=== PATIENT | female | born 1985 | race Caucasian/White ===

== ENCOUNTER 2020-05-11 12:32 | Emergency (ER) | payer MEDICAID, SELFPAY ==
[2020-05-11 13:23] VITALS: BP 118/76; PULSE 115; RESP 16; TEMP 37; O2SAT 97; BMI 23.8
[2020-05-11] MEDS: 0.9 % Sodium Chloride 1,000 ML 999 ML IVCONT (14:44)
[2020-05-11] MEDS: Ketorolac Tromethamine 15 MG/ML VIAL IVPUSH (14:46)
[2020-05-11] MEDS: Metoclopramide HCl 10 MG/2 ML VIAL IVPUSH (14:46)
[2020-05-11 14:50] VITALS: BP 128/67; PULSE 115; RESP 16; TEMP 36.7
[2020-05-11 14:56] LABS: MANUAL DIFF FLAG NO
[2020-05-11 15:02] LABS: Glucose Urine UA NEG (NEG); Leukocyte Esterase Urine NEG (NEG); Nitrite Urine NEG (NEG); PH 5.5 (5.0-8.0); Specific Gravity - Urine >= 1.030 (1.005-1.025); Urine Blood NEG (NEG); Urine Ketones 40 MG/DL (NEG); Urine Protein NEG (NEG-TRACE)
[2020-05-11 15:03] LABS: Basophils Percent Auto 0.4 % (0-2); Eosinophils Percent Auto 0.4 % (0-4); Hematocrit 40.5 % (37-47); Hemoglobin 13.3 g/dl (12.0-16.0); Imm Gran Abs Auto 0.03 X10*3/uL (0.00-0.03); Imm Gran Pct Auto 0.4 % (0.0-0.4); Lymphocytes Absolute Auto 1.5 X10*3/uL (1.2-4.9); Lymphocytes Percent Auto 18.9 % (20-40); Mean Corpuscular HGB Conc 32.8 g/dl (31.0-35.0); Mean Corpuscular Hemoglobin 29.2 pg (27.0-33.0); Mean Corpuscular Volume 88.8 fL (80-98); Mean Platelet Volume 10.2 fL (9.4-12.3); Monocytes Absolute Auto 0.2 X10*3/uL (0.1-1.2); Neutrophils Absolute Auto 6.1 X10*3/uL (2.0-8.3); Neutrophils Percent Auto 76.9 % (45-73); Platelet Count 218 X10*3/uL (160-400); Red Blood Count 4.56 X10*6/uL (4.20-5.50); Red Cell Distribution Width 13.9 % (11.0-16.0); White Blood Count 7.9 X10*3/uL (4.8-10.8)
[2020-05-11 15:07] LABS: Appearance Urine CLEAR; Color Urine YELLOW; UACC Culture Trigger NO
[2020-05-11 15:28] LABS: UPreg QC Valid YES; Urine Pregnancy NEGATIVE (NEGATIVE)
[2020-05-11 15:30] LABS: Alanine Aminotransferase 27 U/L (0-31); Albumin Level 4.6 g/dL (3.5-5.0); Alkaline Phosphatase 65 U/L (39-117); Anion Gap 19 (12-20); Aspartate Amino Transferase 70 U/L (5-31); Bilirubin Direct 0.3 mg/dL (0.0-0.5); Bilirubin Total 0.6 mg/dL (0.0-1.0); Blood Urea Nitrogen 19 mg/dL (9-16); Calcium 9.6 mg/dL (8.4-10.2); Carbon Dioxide 24 mmol/L (22-29); Chloride 100 mmol/L (96-108); Creatinine Clr Calc Pharmacy 78.4; Estimated Glomerular Filt Rate > 60; Glucose Random 64 mg/dL (60-115); Magnesium 2.1 mg/dL (1.6-2.6); Potassium 4.7 mmol/l (3.3-5.1); Sodium 138 mmol/L (135-145); Total Protein 7.5 g/dL (6.5-8.0)
[2020-05-11 16:11] VITALS: BP 124/71; PULSE 100; RESP 16; TEMP 36.6
--- NOTE | 2020-05-11 16:11 | PC.NURSE ---
PT STATES HER HEADACHE IS BETTER, 3/10 PAIN PT WANTS TO KNOW WHY SHE HAS SHAKING EPISODE IN THE AM
--- NOTE | 2020-05-11 16:35 | ED_ITS ---
HPI - Headache General Chief Complaint: Headache Stated Complaint: Headache Time Seen by Provider: 05/11/20 13:59 Source: patient Mode of arrival: ambulatory History of Present Illness HPI Narrative: 34-year-old female with no significant past medical history presented to ED complaining of headache, chills, generalized fatigue /myalgias x 4 days. Headache not maximal in onset, relieved with Excedrin at home. denies lightheadedness/, CP/ SOB, cough, numbness /tingling, abdominal pain, N/V, recent travel Related Data Allergies Allergy/AdvReac Type Severity Reaction Status Date / Time Darvocet A500 Allergy Unknown hives Uncoded 05/11/20 15:10 From DARVOCET-N 100 Allergy Unknown ITCHY Uncoded 05/11/20 15:10 Review of Systems Review of Systems: Constitutional: No Weight loss, No Fever, + Chills, No Night Sweats, + Fatigue, + Malaise Eyes: No Vision Changes Cardiovascular: No Chest Pain, No SOB, No Palpitations Respiratory: No Cough, No Sputum, No Dyspnea Gastrointestinal: No Nausea, No Vomiting, No Diarrhea, No Constipation, No Abdominal pain Genitourinary: No Dysuria, No Hematuria Musculoskeletal: No joint pain, No Myalgias, No Joint Swelling Skin: No Skin Lesions, No rash Neuro: +generalized weakness, No Numbness, No Paresthesias, No Loss of Consciousness, No Dizziness,+ Headache Yes all other systems are reviewed and are negative [facility] Past Medical History Attestation statement: The following information was validated with the patient. Medical History (Updated 05/11/20 @ 13:34 by Reddy Contreras) No known health problems Social History Social History Smoking Status: Current every day smoker Use of substances other than those prescribed or required for medical reasons: Yes Advance Directives: No Advance Directives Information Provided: No Physical Exam Vital Signs: Vital Signs: Vital Signs Temp Pulse Resp BP Pulse Ox 05/11/20 16:11 98 F 100 16 124/71 05/11/20 14:50 98.1 F 115 H 16 128/67 05/11/20 13:23 98.6 F 115 H 16 118/76 97 Body Mass Index 23.8 Const: General: cooperative and healthy appearing Orientation/consciousness: patient oriented x3 Limitations: no limitations HENMT: Head: Yes normal to inspection Ears: hearing grossly normal bilaterally General nose exam: Normal external nose present Face and sinus: Yes normal facial exam Eyes: General: appearance normal, both eyes and all related structures Conjunctivae: conjunctivae normal Sclerae: sclerae normal Corneas: corneas normal Pupils: Equal, round and reactive pupils present EOM: EOMs intact bilaterally Neck: Neck: Yes normal visual inspection and Yes no meningeal signs Resp: Effort & Inspection: normal respiratory effort Auscultation: clear to auscultation bilaterally Cardio: Rate: regular rate Heart sounds: S1 normal heart sound present and S2 normal heart sound present GI: Inspection: Yes normal to inspection Palpation (GI): Soft to palpation, nontender, no guarding and not rigid Skin: Rashes: no rashes Wounds: no wounds Neuro: General: patient oriented x3, gait normal, tone normal, moves all extremities, no meningeal signs, no focal motor deficits and CN's II-XI intact bilaterally Cranial nerves: Yes Equal, round and reactive pupils present Gait exam (Neuro): Normal gait present Extrem: General: Yes normal to inspection Course Course Course Narrative: - AST elevated, labs otherwise unremarkable, UA negative but with ketones likely from dehydration, negative -[id number]-- on re-evaluation patient reports symptomatic improvement lab and imaging results discussed with patient including worrisome signs and symptoms and strict return precautions. Patient verbalized understanding feel safe for discharge follow-up with PCP MDM - Headache MDM Narrative Medical decision making narrative: 34-year-old female with no significant past medical history presented to ED complaining of headache, chills, generalized fatigue /myalgias x4 days. On exam initially tachycardic, NAD, tearful, no focal neuro deficits. Likely viral syndrome/possible COVID-19 vs anxiety. Rule out metabolic / infectious etiology. Low concern for ACS, ICH, CVT, or meningitis plan: Labs, UA, symptomatic therapies, COVID-19, reassess anticipate DC home Lab Data Result diagrams: 05/11/20 14:41 05/11/20 14:42 Labs: Lab Results 05/11/20 05/11/20 05/11/20 Range/Units 14:41 14:42 14:42 WBC 7.9 (4.8-10.8) X10*3/uL RBC 4.56 (4.20-5.50) X10*6/uL Hgb 13.3 (12.0-16.0) g/dl Hct 40.5 (37-47) % MCV 88.8 (80-98) fL MCH 29.2 (27.0-33.0) pg MCHC 32.8 (31.0-35.0) g/dl RDW 13.9 (11.0-16.0) % Plt Count 218 (160-400) X10*3/uL MPV 10.2 (9.4-12.3) fL Immature Gran % (Auto) 0.4 (0.0-0.4) % Neut % (Auto) 76.9 H (45-73) % Lymph % (Auto) 18.9 L (20-40) % [place] % (Auto) 3.0 (2-11) % Eos % (Auto) 0.4 (0-4) % Baso % (Auto) 0.4 (0-2) % Lymph # (Auto) 1.5 (1.2-4.9) X10*3/uL [place] # (Auto) 0.2 (0.1-1.2) X10*3/uL Eos # (Auto) 0.0 (0.0-0.4) X10*3/uL Baso # (Auto) 0.0 (0.0-0.2) X10*3/uL Abs Immat Gran (auto) 0.03 (0.00-0.03) X10*3/uL Absolute Neuts (auto) 6.1 (2.0-8.3) X10*3/uL Absolute Nucleated RBC 0.000 (0.0-0.012) X10*3/uL Nucleated RBC % (auto) 0.0 (0.0-0.2) /100WBC Hold Blue Top SEE NOTE Sodium 138 (135-145) mmol/L Potassium 4.7 (3.3-5.1) mmol/l Chloride 100 (96-108) mmol/L Carbon Dioxide 24 (22-29) mmol/L Anion Gap 19 (12-20) BUN 19 H (9-16) mg/dL Creatinine 0.77 (0.5-1.4) mg/dL Estim Creat Clear Calc 78.4 Estimated GFR > 60 Random Glucose 64 (60-115) mg/dL Calcium 9.6 (8.4-10.2) mg/dL Magnesium 2.1 (1.6-2.6) mg/dL Total Bilirubin 0.6 (0.0-1.0) mg/dL Direct Bilirubin 0.3 (0.0-0.5) mg/dL AST 70 H (5-31) U/L ALT 27 (0-31) U/L Alkaline Phosphatase 65 (39-117) U/L Total Protein 7.5 (6.5-8.0) g/dL Albumin 4.6 (3.5-5.0) g/dL Urine Color Urine Appearance Urine pH (5.0-8.0) Ur Specific [place] (1.005-1.025) Urine Protein (NEG-TRACE) MG/DL Urine Glucose (UA) (NEG) MG/DL Urine Ketones (NEG) MG/DL Urine Blood (NEG) Urine Nitrite (NEG) Ur Leukocyte Esterase (NEG) Urine Test (NEGATIVE) 05/11/20 Range/Units 14:42 WBC (4.8-10.8) X10*3/uL RBC (4.20-5.50) X10*6/uL Hgb (12.0-16.0) g/dl Hct (37-47) % MCV (80-98) fL MCH (27.0-33.0) pg MCHC (31.0-35.0) g/dl RDW (11.0-16.0) % Plt Count (160-400) X10*3/uL MPV (9.4-12.3) fL Immature Gran % (Auto) (0.0-0.4) % Neut % (Auto) (45-73) % Lymph % (Auto) (20-40) % [place] % (Auto) (2-11) % Eos % (Auto) (0-4) % Baso % (Auto) (0-2) % Lymph # (Auto) (1.2-4.9) X10*3/uL [place] # (Auto) (0.1-1.2) X10*3/uL Eos # (Auto) (0.0-0.4) X10*3/uL Baso # (Auto) (0.0-0.2) X10*3/uL Abs Immat Gran (auto) (0.00-0.03) X10*3/uL Absolute Neuts (auto) (2.0-8.3) X10*3/uL Absolute Nucleated RBC (0.0-0.012) X10*3/uL Nucleated RBC % (auto) (0.0-0.2) /100WBC Hold Blue Top Sodium (135-145) mmol/L Potassium (3.3-5.1) mmol/l Chloride (96-108) mmol/L Carbon Dioxide (22-29) mmol/L Anion Gap (12-20) BUN (9-16) mg/dL Creatinine (0.5-1.4) mg/dL Estim Creat Clear Calc Estimated GFR Random Glucose (60-115) mg/dL Calcium (8.4-10.2) mg/dL Magnesium (1.6-2.6) mg/dL Total Bilirubin (0.0-1.0) mg/dL Direct Bilirubin (0.0-0.5) mg/dL AST (5-31) U/L ALT (0-31) U/L Alkaline Phosphatase (39-117) U/L Total Protein (6.5-8.0) g/dL Albumin (3.5-5.0) g/dL Urine Color YELLOW Urine Appearance CLEAR Urine pH 5.5 (5.0-8.0) Ur Specific [place] >= 1.030 H (1.005-1.025) Urine Protein NEG (NEG-TRACE) MG/DL Urine Glucose (UA) NEG (NEG) MG/DL Urine Ketones 40 (NEG) MG/DL Urine Blood NEG (NEG) Urine Nitrite NEG (NEG) Ur Leukocyte Esterase NEG (NEG) Urine Test NEGATIVE (NEGATIVE)
== END 2020-05-11 17:15 | disposition home or self-care (01) ==
PROVIDERS: Physician Assistant; Emergency Provider Emergency Medicine; PCP Student in an Organized Health Care Education/Training Program
DX: R51.9 Headache, unspecified (principal); M79.10 Myalgia, unspecified site; Z79.899 Other long term (current) drug therapy; F17.200 Nicotine dependence, unspecified, uncomplicated; Z71.6 Tobacco abuse counseling; Z20.828 Contact with and (suspected) exposure to other viral communicable diseases
CPT/HCPCS: 36415; 80048; 80076; 81003; 81025; 83735; 85025; 87635; 96361; 96374; 96375; 99284; J1885; J2765

== ENCOUNTER 2020-05-12 14:56 | Emergency (ER) | payer MEDICAID, SELFPAY ==
[2020-05-12 15:49] VITALS: BP 124/69; PULSE 102; RESP 17; TEMP 37.3; O2SAT 98; BMI 23.8
[2020-05-12 20:11] VITALS: BP 144/76; PULSE 112; RESP 18; TEMP 37.1; O2SAT 100
--- NOTE | 2020-05-12 20:11 | ED.DIZZY ---
HPI - Dizziness General Chief Complaint: Dizziness Stated Complaint: dizzyness Time Seen by Provider: 05/12/20 15:31 Source: patient Mode of arrival: ambulatory Limitations: no limitations History of Present Illness HPI Narrative: 34-year-old female presents with dizziness, headache and nausea. 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 dizziness increases when she changes positions and her headache has not been relieved since last night. She denies chest pain or pressure, palpitations, fevers, chills, abdominal pain, abdominal distention, nausea, trauma, falls, edema, dysuria, and hematuria. MD elicited complaint: dizziness, lightheadedness, vertigo and disequilibrium Onset (ago): day(s) Timing: gradual onset Severity: moderate Description: sense of movement, room spinning , lightheadedness, off-balance and near-syncope Context: change in body position History of similar symptoms: Yes Exacerbating factors: movement/ambulation and change in body position Relieving factors: nothing Associated symptoms: nausea Stroke scale total: 0 Related Data Previous Rx's Medication Instructions Recorded [id number]-[id number]-rnij 1 cap PO Q4-6H PRN #10 cap 05/11/20 [Fioricet] ondansetron HCl [Zofran] 4 mg PO Q8H PRN #10 tab 05/11/20 hydroxyzine HCl 50 mg PO TID PRN #14 tab 05/12/20 Allergies Allergy/AdvReac Type Severity Reaction Status Date / Time Darvocet A500 Allergy Unknown hives Uncoded 05/11/20 15:10 From DARVOCET-N 100 Allergy Unknown ITCHY Uncoded 05/11/20 15:10 Review of Systems Review of Systems: Constitutional: No Weight loss, No Fever, No Chills, No Night Sweats, No Fatigue, No Malaise ENT/Mouth: No Hearing loss, No Ear Pain, No Nasal Congestion, No Sinus Pain, No Hoarseness, No sore throat, No Rhinorrhea, No Swallowing Difficulty Eyes: No Eye Pain, No Swelling, No Redness, No Foreign Body, No Discharge, No Vision Changes Cardiovascular: No Chest Pain, No SOB, No Dyspnea on Exertion, No Orthopnea, No Edema, No Palpitations Respiratory: No Cough, No Sputum, No Wheezing, No Smoke Exposure, No Dyspnea Gastrointestinal: No Nausea, No Vomiting, No Diarrhea, No Constipation, No abdominal Pain, No Hematochezia, No Melena Genitourinary: no irregular bleeding, No Dysuria, No Urinary Frequency, No Hematuria, No Urinary Incontinence, No Urgency, No Flank Pain, No Urinary Flow Changes, No Hesitancy Musculoskeletal: No joint pain, No Myalgias, No Joint Swelling Skin: No Skin Lesions, No rash Neuro: No Weakness, No Numbness, No Paresthesias, No Loss of Consciousness, No Dizziness, No Headache Psych: No Anxiety/Panic, No Depression, No SI/HI/AH/VH, No Social Issues Heme/Lymph: No Bruising, No Bleeding,No Lymphadenopathy Endocrine: No Polyuria, No Polydipsia, No Temperature Intolerance PMFSH Past Medical History Attestation statement: The following information was validated with the patient. Medical History No known health problems Social History Social History Alcohol intake: current Alcohol intake frequency: a few times a month Smoking Status: Current every day smoker Use of substances other than those prescribed or required for medical reasons: No Advance Directives: No Advance Directives Information Provided: Yes Physical Exam Vital Signs: Vital Signs: Vital Signs Temp Pulse Resp BP Pulse Ox 05/12/20 21:50 98.8 F 114 H 18 126/80 99 05/12/20 20:16 120 H 106/76 05/12/20 20:15 116 H 117/76 05/12/20 20:11 98.8 F 112 H 18 144/76 H 100 05/12/20 15:49 99.2 F 102 H 17 124/69 98 Body Mass Index 23.8 Appearance: Alert. Oriented X3. No acute distress. Head: Normal external exam. Normocephalic. Atraumatic. No Banda signs noted. No raccoon eyes noted Eyes: PERRLA. EOMI. Conjunctiva and sclera normal. Eyelids normal. ENT: TM's Normal. Pharynx normal. Uvula midline. Moist mucous membranes. No trismus noted. No drooling noted. No muffled voice noted. Neck: Normal inspection. Neck supple. No adenopathy. Thyroid Normal. No meningeal signs. No neck mass noted. CVS: Normal heart rate and rhythm. Heart sound normal. No murmurs noted. Pulses equal to all extremities. Respiratory: No respiratory distress. Painless inspiration. Breath sounds normal. No wheezes/rales/rhonchi noted. Chest nontender. No accessory muscle usage noted or decreased air movement noted. Abdomen: Soft and nontender. Bowel sounds normal in all 4 quadrants. No distention noted. No organomegaly noted. No visible injury noted. Back: No CVA tenderness. Full range of motion noted. Skin: Skin warm and dry. Normal skin color. Normal skin turgor. No rashes/lesions/lacerations noted. Extremities: No lower extremity edema. Extremities exhibit normal range of motion. Extremities nontender. Neuro: cranial nerves 2-12 intact, no focal neural deficits, strength 5/5 to all extremities, No motor deficit. No sensory deficit. Reflexes normal. Course Course Course Narrative: Orthostatics vital signs indicate ortho static hypotension, we will replete with 2 L of fluid, for her headache we will prescribe Fioricet. Lab values from less than 24 hours ago are within normal limits, we will not repeat lab values. We will repeat urinalysis and test. Once fluids repleted will repeat orthostatics. orthostatics normal, patient heart rate remains elevated at 110, she is asking for more medications for anxiety, patient appears to be withdrawing but patient is not forthcoming about alcohol or drug use. She is asked the nurse multiple times for benzos, she did tell the nurse that they took her off of Klonopin because she is on methadone, she did not disclose this information to me even though I asked her several times about prior prescriptions. I feel at this time patient should be discharged home as she is hemodynamically stable. MDM - Dizziness MDM Narrative Medical decision making narrative: Dehydration, UTI Differential Diagnosis Differential diagnosis: Likely benign paroxysmal positional vertigo and orthostatic hypotension Medical Records Attestation: I reviewed the patient's medical records. Lab Data Attestation: I reviewed the patient's lab results. Labs: Lab Results 05/12/20 05/12/20 Range/Units 20:08 20:08 Urine Color YELLOW Urine Appearance CLEAR Urine pH 5.5 (5.0-8.0) Ur Specific [place] >= 1.030 H (1.005-1.025) Urine Protein NEG (NEG-TRACE) MG/DL Urine Glucose (UA) NEG (NEG) MG/DL Urine Ketones >=80 (NEG) MG/DL Urine Blood NEG (NEG) Urine Nitrite NEG (NEG) Ur Leukocyte Esterase 1+ H (NEG) Urine RBC 0 (0) /HPF Urine WBC 0-2 (0-4) /HPF Ur Squamous Epith Cells 1+ /LPF Urine Bacteria 1+ /LPF Urine Test NEGATIVE (NEGATIVE) Discharge Plan Discharge Clinical Impression: Orthostatic hypotension Patient Disposition: Home, Self-Care Instructions: Hypotension (ED) Additional Instructions: please chicken picker the medications that were prescribed to you. Drink plenty of fluids. Follow-up with primary care provider in 3-5 days. Thank you for choosing this emergency department for evaluation. Please follow-up with primary care physician as needed. Return to the emergency department for any new, concerning, or worsening symptoms. Prescriptions: New hydroxyzine HCl 50 mg tablet 50 mg PO TID PRN (Reason: anxiety) Qty: 14 RF: 0 No Action ondansetron HCl [Zofran] 4 mg tablet 4 mg PO Q8H PRN (Reason: nausea and vomiting) Qty: 10 RF: 0 jsxtvmlsue-rfihzrtpehdtp-wlea [Fioricet] 50-300-40 mg capsule 1 cap PO Q4-6H PRN (Reason: pain) Qty: 10 RF: 0 Interventions: ED Discharge Assessment Last Done: 05/12/20 22:01 Discharge Date/Time: 05/12/20 22:07 Print Language: Croatian
[2020-05-12 20:15] VITALS: BP 117/76; BP 140/77; PULSE 116
[2020-05-12 20:15] LABS: Glucose Urine UA NEG (NEG); Leukocyte Esterase Urine 1+ (NEG); Nitrite Urine NEG (NEG); PH 5.5 (5.0-8.0); Specific Gravity - Urine >= 1.030 (1.005-1.025); Urine Blood NEG (NEG); Urine Ketones >=80 MG/DL (NEG); Urine Protein NEG (NEG-TRACE)
[2020-05-12 20:16] VITALS: BP 106/76; PULSE 120
[2020-05-12 20:16] LABS: Appearance Urine CLEAR; Color Urine YELLOW
[2020-05-12 20:17] LABS: UPreg QC Valid YES; Urine Pregnancy NEGATIVE (NEGATIVE)
[2020-05-12 20:21] LABS: Bacteria Urine 1+ /LPF; RBC Urine 0 /HPF (0); Squamous Epithelial Cell Urine 1+ /LPF; WBC Urine 0-2 /HPF (0-4)
[2020-05-12] MEDS: ondansetron HCL 4 MG/2 ML VIAL IVPUSH (20:33)
[2020-05-12] MEDS: 0.9 % Sodium Chloride 1,000 ML 999 ML IVCONT ×2 (20:33)
--- NOTE | 2020-05-12 21:12 | PC.NURSE ---
pt arrives via private vehicle from waiting room for multiple complaints. pt was seen here yesterday for similar complaints. blood work unremarkable. pt states she has a headache, intermittent dizziness, anxiety. pt lined and medicated per emar. pt is ortho positive. urine sent. pt has been sleeping since interventions. offers no new complaints.
[2020-05-12 21:50] VITALS: BP 126/80; PULSE 114; RESP 18; TEMP 37.1; O2SAT 99
--- NOTE | 2020-05-12 21:51 | PC.NURSE ---
MACK AWARE OF PATIENTS VITALS AT THIS TIME
== END 2020-05-12 22:07 | disposition home or self-care (01) ==
PROVIDERS: Nurse Practitioner Family; Emergency Provider Emergency Medicine; PCP Student in an Organized Health Care Education/Training Program
DX: I95.1 Orthostatic hypotension (principal); R42 Dizziness and giddiness
CPT/HCPCS: 81001; 81025; 87086; 96361; 96374; 99284; J2405

== ENCOUNTER → 2020-05-22 11:07 | Outpatient (BNVA) | payer MEDICAID, SELFPAY | PROVIDERS: PCP Student in an Organized Health Care Education/Training Program; Visit Provider Orthopaedic Surgery | DX: M67.431 Ganglion, right wrist (principal); R20.0 Anesthesia of skin | CPT/HCPCS: 99212 ==

== ENCOUNTER 2020-12-28 09:44 | Outpatient (REF) | payer MEDICAID, SELFPAY ==
--- NOTE | ~2020-12-28 | XR_ITS ---
EXAMINATION: XR CHEST CLINICAL INFORMATION: Cough COMPARISON: 04/29/2016 and 05/20/[address] abdomen and pelvis 07/08/2011 TECHNIQUE: 2 views of the chest were obtained. FINDINGS: A pectus excavatum is present. Mild increased density seen in the right infrahilar region probably secondary to the patient's pectus excavatum deformity as similar findings have been present in the past. Otherwise, no significant abnormality is noted involving the heart, lungs, mediastinum, bony thorax or soft tissues. XR/XR chest 2V IMPRESSION: Pectus excavatum with associated vague increased density in the infrahilar region probably secondary to the pectus deformity. No acute consolidation or lung masses are seen.
[2020-12-28 10:36] LABS: MANUAL DIFF FLAG NO
[2020-12-28 10:40] LABS: Basophils Percent Auto 0.7 % (0-2); Eosinophils Absolute Auto 0.2 X10*3/uL (0.0-0.4); Eosinophils Percent Auto 3.5 % (0-4); Hematocrit 41.8 % (37-47); Hemoglobin 13.7 g/dl (12.0-16.0); Imm Gran Abs Auto 0.02 X10*3/uL (0.00-0.03); Imm Gran Pct Auto 0.3 % (0.0-0.4); Lymphocytes Absolute Auto 2.2 X10*3/uL (1.2-4.9); Lymphocytes Percent Auto 37.3 % (20-40); Mean Corpuscular HGB Conc 32.8 g/dl (31.0-35.0); Mean Corpuscular Volume 88.4 fL (80-98); Monocytes Absolute Auto 0.4 X10*3/uL (0.1-1.2); Monocytes Percent Auto 6.2 % (2-11); Neutrophils Absolute Auto 3.1 X10*3/uL (2.0-8.3); Platelet Count 216 X10*3/uL (160-400); Red Blood Count 4.73 X10*6/uL (4.20-5.50); Red Cell Distribution Width 13.9 % (11.0-16.0)
[2020-12-28 11:02] LABS: C Reactive Protein 0.92 mg/dL (< or = 0.50)
[2020-12-28 11:24] LABS: Erythrocyte Sedimentation Rate 10 MM/HR (0-20)
== END 2020-12-28 09:45 | disposition home or self-care (01) ==
LOC: HO.LAB 09:44
PROVIDERS: Absent Provider Student in an Organized Health Care Education/Training Program; PCP Student in an Organized Health Care Education/Training Program; Visit Provider Internal Medicine
DX: R05 Cough (principal)
CPT/HCPCS: 36415; 71046; 85025; 85652; 86140

== ENCOUNTER 2023-01-26 14:46 | Emergency (ER) | payer MEDICAID, SELFPAY ==
[2023-01-26 15:29] VITALS: BP 141/81; PULSE 89; RESP 18; TEMP 36.1; O2SAT 96; BMI 17.7
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
== END 2023-01-26 19:05 | disposition home or self-care (01) ==
PROVIDERS: Emergency Provider Internal Medicine; PCP Student in an Organized Health Care Education/Training Program
DX: R07.89 Other chest pain (principal); R06.02 Shortness of breath; R07.81 Pleurodynia; Z79.899 Other long term (current) drug therapy
CPT/HCPCS: 36415; 71046; 80053; 83880; 84484; 85025; 85610; 85730; 93005; 99284

== ENCOUNTER → 2023-01-26 15:32 | Outpatient (BNV) | payer MEDICAID, SELFPAY | PROVIDERS: Emergency Provider Internal Medicine; PCP Student in an Organized Health Care Education/Training Program; Visit Provider Internal Medicine Cardiovascular Disease | DX: R94.31 Abnormal electrocardiogram [ECG] [EKG] (principal) | CPT/HCPCS: 93010 ==